=== PATIENT | female | born 1995 | race Caucasian/White ===

== ENCOUNTER 2017-11-16 07:54 | Outpatient (CLI) | payer OTHER ==
--- NOTE | 2017-11-16 09:44 | ULT ---
ULTRASOUND ABDOMEN COMPLETE: Date: 11/16/17 HISTORY: 22-year-old female with abdominal bloating. FINDINGS: Liver: Normal size and echogenicity. Gallbladder: Surgically absent. Common duct: 3 mm. Spleen: no splenomegaly. Pancreas: Nonspecific sonographic appearance of portion of head and body. The rest of the pancreas is obscured by shadowing from bowel gas. Kidneys: No hydronephrosis. Abdominal aorta: No aneurysm. Inferior vena cava: Unremarkable. Free fluid: None visualized. IMPRESSION: 1. Status post cholecystectomy. 2. Otherwise negative. MINGO Chaney POS: TRACI
== END 2017-11-16 07:55 | disposition home or self-care (01) ==
LOC: SCSULT 07:54
PROVIDERS: ATTEND Internal Medicine Gastroenterology
DX: R14.0 Abdominal distension (gaseous) (principal); R19.8 Other specified symptoms and signs involving the digestive system and abdomen; Z90.49 Acquired absence of other specified parts of digestive tract
CPT/HCPCS: 76700

== ENCOUNTER 2018-03-12 11:01 | Outpatient (CLI) | payer OTHER ==
[2018-03-12 12:07] LABS: Hemoglobin 12.7 g/dL (12.0-16.0); Mean Corpuscular HGB CONC 33.9 g/dL (32.0-36.0); Mean Corpuscular Hemoglobin 29.6 pg (27.0-31.0); Mean Corpuscular Volume 87.2 fL (78.0-98.0); Mean Platelet Volume 8.1 fL (7.4-10.4); Platelet Count 237 thou/uL (130-400); RBC Distribution Width 11.4 % (11.5-14.5); Red Blood Cell (RBC) Count 4.31 mill/uL (4.20-5.40); White Blood Cell (WBC) Count 6.4 thou/uL (4.8-10.8)
[2018-03-12 12:31] LABS: BHCG - Serum Negative (NEGATIVE); Pregs Control Background? CLEAR/WHITE (CLR/WHITE); Pregs Control Bar Appear? YES (CONTROL BAR)
== END 2018-03-12 11:02 | disposition home or self-care (01) ==
LOC: LABBT 11:01
PROVIDERS: ATTEND Obstetrics & Gynecology
DX: Z01.812 Encounter for preprocedural laboratory examination (principal); N94.10 Unspecified dyspareunia; N92.1 Excessive and frequent menstruation with irregular cycle
CPT/HCPCS: 84703; 85027; 86850; 86900; 86901

== ENCOUNTER 2018-03-13 07:59 | Day surgery (SDC) | payer OTHER ==
[2018-03-12 11:31] VITALS: BMI 36.0
--- NOTE | 2018-03-12 20:53 | HP ---
SCHEDULED DATE OF SURGERY: 03/13/2018 HISTORY OF PRESENT ILLNESS: Ms. Santos is a 22-year-old white female with a previous history of lapa roscopy in 2013 for severe dysmenorrhea. At that time, she did not have any obvious evidence of endo metriosis and underwent GALA procedure with improvement of her dysmenorrhea. She had been doing well until recently and she began having persistent pelvic pain and dysmenorrhea a nd issues with dyspareunia and dyschezia at time of her menstrual cycles. She had a Mirena IUD for y ear after the of her first child and did well until she started bleeding very heavy, passed a l arge clot with the IUD. She was seeing Dr. Hernandez at this time and had an ultrasound that showed so me fluid collection in the uterus. She had an EMB that was performed by report and it was normal. S he continued to bleed irregularly on the OCPs and currently is on continuous 35 Alejandro OCPs and having daily dark brown bleeding. She has chronic menstrual cramping symptoms also. She has also been havi ng dyspareunia issues and did have a negative laparoscopy as reported in age of 18. She did report a s noted that GALA procedure did improve her dysmenorrhea in the past. She does have a history of her mother having severe endometriosis. The dyschezia on her cycles has started recently and also havangelo eldridge deep dyspareunia. PAST MEDICAL HISTORY: As per HPI. Hypothyroidism. PAST SURGICAL HISTORY: As per HPI. ALLERGIES: AUGMENTIN and CLINDAMYCIN. CURRENT MEDICATIONS: Mononessa OCP and levothyroxine 50 mcg daily. REVIEW OF SYSTEMS: As per HPI. PHYSICAL EXAMINATION: VITAL SIGNS: Blood pressure is 120/68, height 5 feet 8 inches, weight 237 pounds, respiratory rate 1 8. HEENT: Normocephalic. CHEST: Clear to auscultation. HEART: Regular rate and rhythm. S1, S2 heart sounds. ABDOMEN: Soft, nontender, nondistended with no palpable masses or hepatosplenomegaly. PELVIC: Vulva and vagina had no lesions. Cervix had no lesions. Uterus was small, nontender. Adne xa had no masses, but were tender bilaterally. Bladder and urethra showed nondistended bladder. Nor mal meatus and urethra. No urethral discharge or urethral mass. ASSESSMENT: This is a 22-year-old white female with persistent pelvic pain, dysmenorrhea, dysp areunia, dyschezia, with symptoms suggestive of endometriosis. She also has continued breakthrough b leeding with oral contraceptives and previous issues with the uterine fluid collection. PLAN: Proceed with a diagnostic laparoscopy and ablation of endometrial implants and excision if enc ountered. We will also do a diagnostic hysteroscopy, D&C to rule out any intracavitary uterine lesio ns causing the continued breakthrough bleeding. Risks and procedure have been discussed with the pat ient in detail. She is set for surgery on 03/13/2018.
[2018-03-13] MEDS ORDERED: CeleCOXIB 100 MG CAP ONE (08:27)
[2018-03-13] MEDS ORDERED: Famotidine/PF 20 mg/2ml Vial ONE (08:27)
[2018-03-13] MEDS ORDERED: Gabapentin 300 MG CAP ONE (08:27)
[2018-03-13] MEDS ORDERED: Bupivacaine HCl 0.5%/Epinephrine 1:200,000/PF 30 ml Vial ONE (09:07)
[2018-03-13] MEDS ORDERED: Levofloxacin 500 mg/D5W 100 ml Premix Bag ONE (10:15)
[2018-03-13] MEDS ORDERED: HYDROmorphone 0.5 MG/0.5 ML SYRINGE ONE (10:16)
[2018-03-13] MEDS ORDERED: Midazolam HCl 2 mg/2 ml Vial ONE (10:16)
[2018-03-13] MEDS ORDERED: Promethazine HCl 25 MG/ML VIAL ONE ×2 (10:16→13:35)
[2018-03-13] MEDS ORDERED: Fentanyl 100 MCG/2 ML VIAL ONE ×2 (10:16→12:23)
--- NOTE | 2018-03-13 12:41 | OP ---
DATE OF PROCEDURE: 03/13/2018 PREOPERATIVE DIAGNOSES: 1. A 22-year-old white female G1, P1 with irregular abnormal uterine bleeding on continuous oral con traceptives. 2. Pelvic pain, dyspareunia and dysmenorrhea rule out endometriosis. POSTOPERATIVE DIAGNOSES: 1. A 22-year-old white female G1, P1 with irregular abnormal uterine bleeding on continuous oral con traceptives. 2. Pelvic pain, dyspareunia and dysmenorrhea rule out endometriosis. 3. Normal pelvic anatomy and uterine cavity. PROCEDURES PERFORMED: 1. Diagnostic hysteroscopy. 2. Diagnostic laparoscopy. SURGEON: Uma Brown M.D. COATER SMOKING PIPE SURGEON: Bo Walton D.O. ANESTHESIA: General. ESTIMATED BLOOD LOSS: Less than 10 mL. COMPLICATIONS: None. COUNTS: Correct x2. PATHOLOGY: None. FINDINGS: 1. Normal uterine cavity with bilateral tubal ostia normal appearing with no evidence of polyps or m yomas within the endometrial cavity or lesions. 2. Normal appearing endocervical cavity. 3. Normal appearing uterus, tubes, and ovaries. 4. Normal appearing anterior and posterior cul-de-sac of the pelvis and normal appearing pelvic side coreas with no evidence of any active endometriosis. Evidence and some post-uterosacral scarring from the GALA procedure performed several years back. DISPOSITION: To the recovery room stable. DESCRIPTION OF OPERATIVE PROCEDURE: The patient previously received informed consent in regards to goyo valenzuela. She was taken back to the operating room where she received a general endotracheal anestheti c agent without complications. She was placed in the dorsal lithotomy position with use of Cornel sti rrups. She was then prepped and draped in usual sterile fashion. Boogie catheter was placed. A side arm speculum was placed in the vagina. Anterior lip of cervix was grasped with single tooth tenaculu m. Uterus sounded to 8 cm. The cervix was dilated to size 16 Rosenberg dilator and then a diagnostic 5 mm scope was placed through the endocervical canal into the uterine cavity. The uterine cavity was i nspected with the previously mentioned findings. The hysteroscope was removed. Minimal distention d eficit was noted. Attention was then turned to the abdomen where perspective trocar sites were infiltrated with 0.5% Ma rcaine. An 8 mm infraumbilical incision was made. Veress needle was placed into the peritoneal cavi ty. Second attempt to the abdomen had patient pressure of less than 5. The abdomen was insufflated to patient pressure of 15 a patient pressure of 15 and the abdomen was distended to approximately 4-5 liters of carbon dioxide gas. Veress needle was removed and a diagnostic 8.5 mm scope was placed th rough the infraumbilical incision. The abdomen was inspected and the pelvis with the previously ment ioned findings. Both the anterior and posterior cul-de-sacs were visualized. Bilateral pelvic sidew alls along with the adnexal structures were visualized normal in appearance. The liver appeared norm al. There were no abnormal adhesions in the pelvis where the colon noted. There were some postopera tive changes from the uterosacral ligament areas from the previous GALA procedure performed several y ears prior. Since there was no active and/or any lesions noted, the laparoscope was removed. Trocar sleeve was removed. A subcuticular stitch of 4-0 Monocryl was placed in the infraumbilical incision and Marcaine. An additional Marcaine was placed. The Hulka uterine manipulator was removed along w ith a Boogie catheter. The patient was awakened from anesthesia and transferred to recovery room in s table condition.
[2018-03-13] MEDS ORDERED: Ondansetron ODT 4 MG TAB ONE (13:33)
[2018-03-13] MEDS ORDERED: Ketorolac Tromethamine 30 MG/ML VIAL ONE (15:23)
[2018-03-13] MEDS ORDERED: Glycopyrrolate 0.2 MG/ML 5 ML SYRINGE ONE (15:23)
[2018-03-13] MEDS ORDERED: Dexamethasone 20 MG/5 ML VIAL ONE (15:23)
[2018-03-13] MEDS ORDERED: Lidocaine 1% PF 5 ML VIAL ONE (15:23)
[2018-03-13] MEDS ORDERED: PROPOFOL 200 MG/20 ML VIAL ONE (15:23)
[2018-03-13] MEDS ORDERED: Ondansetron HCl/PF 4 MG/2 ML Vial ONE (15:23)
== END 2018-03-13 13:45 | disposition home or self-care (01) ==
LOC: SDC 07:59
PROVIDERS: ATTEND Obstetrics & Gynecology
PROC: 0WJJ4ZZ Inspection of Pelvic Cavity, Percutaneous Endoscopic Approach (ICD-10-PCS; principal; 2018-03-13)
PROC: 0UJD8ZZ Inspection of Uterus and Cervix, Via Natural or Artificial Opening Endoscopic (ICD-10-PCS; principal; 2018-03-13)
DX: N94.10 Unspecified dyspareunia (principal); N94.6 Dysmenorrhea, unspecified; N93.8 Other specified abnormal uterine and vaginal bleeding; E03.9 Hypothyroidism, unspecified; Z79.3 Long term (current) use of hormonal contraceptives; Z79.899 Other long term (current) drug therapy; Z88.0 Allergy status to penicillin; Z88.1 Allergy status to other antibiotic agents; Z98.890 Other specified postprocedural states
CPT/HCPCS: 96374; 96375; J0670; J1100; J1170; J1885; J1956; J2001; J2250; J2405; J2550; J2704; J3010; Q0162; S0028

== ENCOUNTER 2023-03-10 15:23 | Outpatient (CLI) | payer OTHER | END 2023-03-10 15:24 | disposition home or self-care (01) | LOC: BICCT 15:23 | PROVIDERS: ATTEND Family Medicine | DX: R39.9 Unspecified symptoms and signs involving the genitourinary system (principal) | CPT/HCPCS: 74176 ==

== ENCOUNTER 2023-09-08 08:33 | Outpatient (CLI) | payer OTHER ==
[2023-09-08] MEDS ORDERED: Iopamidol-370 76% 500 ML BOT (X-RAY USE) FS ONE (09:32)
== END 2023-09-08 08:34 | disposition home or self-care (01) ==
LOC: RAD 08:33
PROVIDERS: ATTEND Urology
DX: R35.0 Frequency of micturition (principal); Z87.448 Personal history of other diseases of urinary system
CPT/HCPCS: 51600; 74455; Q9967